=== PATIENT | female | born 1995 | race Two or more races ===

== ENCOUNTER 2023-02-18 02:07 | Emergency (ER) | payer SELFPAY ==
[~2023-02-18] VITALS: Ht 154.9 cm; Wt 63.6 kg
[2023-02-18 02:08] VITALS: BP 118/77
== END 2023-02-18 02:54 | disposition left against medical advice (07) ==
LOC: EMS 02:07
DX: R10.9 Unspecified abdominal pain (principal); Z53.21 Procedure and treatment not carried out due to patient leaving prior to being seen by health care provider
CPT/HCPCS: 99281